=== PATIENT | female | born 1990 | race Caucasian/White ===

== ENCOUNTER 2018-11-10 07:38 | Emergency (ER) | payer OTHER ==
[~2018-11-10] VITALS: Ht 157.4 cm; Wt 78.9 kg
== END 2018-11-10 08:43 | disposition home or self-care (01) ==
LOC: ED 07:38
DX: L60.0 Ingrowing nail (principal)

== ENCOUNTER 2024-02-15 17:35 | Emergency (ER) | payer OTHER ==
[~2024-02-15] VITALS: Ht 154.9 cm; Wt 69.9 kg
[2024-02-15] MEDS ORDERED: Bacitracin Zinc 14 GM TUBE T ONE (17:55)
[2024-02-15] MEDS ORDERED: Tdap Vaccine 0.5 ML SYR (Adult Vaccine) IM ONE (17:55)
== END 2024-02-15 18:00 | disposition home or self-care (01) ==
LOC: ED 17:35
DX: S60.311A Abrasion of right thumb, initial encounter (principal); Z90.49 Acquired absence of other specified parts of digestive tract; W26.8XXA Contact with other sharp object(s), not elsewhere classified, initial encounter; Y93.89 Activity, other specified; Y92.89 Other specified places as the place of occurrence of the external cause; Y99.8 Other external cause status

== ENCOUNTER 2024-09-27 08:36 | Emergency (ER) | payer OTHER ==
[~2024-09-27] VITALS: Ht 157.4 cm; Wt 72.6 kg
[2024-09-27] MEDS ORDERED: OLANZAPINE7.5 M1 PO ×2 (08:53→08:59)
[2024-09-27] MEDS ORDERED: FLUOXETINE HCL40 MG PO ×2 (08:53→08:59)
[2024-09-27] MEDS ORDERED: ATARAX,VISTARIL10 MG PO (08:53)
== END 2024-09-27 09:09 | disposition home or self-care (01) ==
LOC: ED 08:36
DX: Z04.89 Encounter for examination and observation for other specified reasons (principal); Z79.899 Other long term (current) drug therapy